=== PATIENT | female | born 1985 | race Caucasian/White ===

== ENCOUNTER 2017-07-16 09:11 | Emergency (ER) | payer OTHER ==
[2017-07-16] MEDS: predniSONE 20 MG TAB PO (12:04)
== END 2017-07-16 12:09 | disposition home or self-care (01) ==
LOC: FTE 09:11
DX: R51 Headache (principal); R42 Dizziness and giddiness
CPT/HCPCS: 70450; 82962; 93005; 99284-25

== ENCOUNTER 2017-12-20 15:10 | Inpatient (IN) | payer OTHER ==
[2017-12-20] MEDS ORDERED: MAGNESIUM HYDROXIDE 30ML CUP PO (16:00)
[2017-12-20] MEDS ORDERED: morphine 2 MG INJ IV (16:00)
[2017-12-20] MEDS ORDERED: BISACODYL (EC) 5 MG TAB PO (16:00)
[2017-12-20] MEDS ORDERED: DOCUSATE SODIUM 100 MG CAP PO (16:00)
[2017-12-20] MEDS ORDERED: NACL 0.9% 3 ML SYG IV (16:00)
[2017-12-20] MEDS ORDERED: ONDANSETRON 4 MG INJ IV (16:00)
[2017-12-20 16:12] LABS: ADD MAN DIFF? NO
[2017-12-20 16:13] LABS: WHITE BLOOD COUNT 7.2 10^3/ul (4.8-10.8)
[2017-12-20 16:13] LABS: ABNORMAL IP MESSAGE 1; BASOPHILS % 0.1 % (0.0-2.0); HEMATOCRIT 39.6 % (37.0-47.0); HEMOGLOBIN 13.2 g/dl (12.0-16.0); LYMPHOCYTES # 0.4 10^3/ul (0.8-2.9); MEAN CORPUSCULAR HEMOGLOBIN 30.4 pg (29.0-33.0); MEAN CORPUSCULAR HGB CONC 33.3 g/dl (32.0-37.0); MEAN CORPUSCULAR VOLUME 91.2 fl (82.0-101.0); MEAN PLATELET VOLUME 9.4 fl (7.4-10.4); MONOCYTES % 0.6 % (0.0-11.0); NEUTROPHIL # 6.7 10^3/ul (1.6-7.5); NEUTROPHILS % 92.9 % (39.0-77.0); PLATELET COUNT 300 10^3/UL (140-415); RED BLOOD COUNT 4.34 10^6/ul (4.20-5.40); RED CELL DISTRIBUTION WIDTH 13.4 % (11.5-14.5)
[2017-12-20 16:26] LABS: POSITIVE DIFF @See below
[2017-12-20 16:37] LABS: ALANINE AMINOTRANSFERASE 102 IU/L (13-69); ALBUMIN 4.7 g/dl (3.3-4.9); ALKALINE PHOSPHATASE 95 IU/L (42-121); ANION GAP 15 (8-16); ASPARTATE AMINO TRANSFERASE 64 IU/L (15-46); BILIRUBIN,INDIRECT 0.7 mg/dl (0-1.1); BILIRUBIN,TOTAL 0.7 mg/dl (0.2-1.3); BLOOD UREA NITROGEN 13 mg/dl (7-20); CALCIUM 9.6 mg/dl (8.4-10.2); CARBON DIOXIDE 27 mmol/L (21-31); CHLORIDE 104 mmol/L (97-110); CREATININE 0.61 mg/dl (0.44-1.00); GLUCOSE 179 mg/dl (70-220); POTASSIUM 4.5 mmol/L (3.5-5.1); SODIUM 141 mmol/L (135-144); TOTAL PROTEIN 8.3 g/dl (6.1-8.1)
[2017-12-20] MEDS: ACETAMINOPHEN 325 MG TAB PO (17:25)
[2017-12-20] MEDS: TECFIDERA 240 MG PO (21:07)
[2017-12-20] MEDS: DULOXETINE 20 MG CAP DR PO (21:07)
[2017-12-20] MEDS: HEPARIN 5,000 UNIT/0.5 ML VIAL SC (21:12)
[2017-12-20] MEDS: ZOLPIDEM 5 MG TAB PO (22:49)
[2017-12-21] MEDS: HEPARIN 5,000 UNIT/0.5 ML VIAL SC ×3 (05:45→21:30)
[2017-12-21 06:24] LABS: ADD MAN DIFF? NO
[2017-12-21 06:31] LABS: WHITE BLOOD COUNT 13.1 10^3/ul (4.8-10.8)
[2017-12-21 06:31] LABS: BASOPHILS % 0.1 % (0.0-2.0); HEMATOCRIT 37.1 % (37.0-47.0); HEMOGLOBIN 12.4 g/dl (12.0-16.0); LYMPHOCYTES # 0.7 10^3/ul (0.8-2.9); LYMPHOCYTES % 5.6 % (15.0-51.0); MEAN CORPUSCULAR HEMOGLOBIN 30.2 pg (29.0-33.0); MEAN CORPUSCULAR HGB CONC 33.4 g/dl (32.0-37.0); MEAN CORPUSCULAR VOLUME 90.3 fl (82.0-101.0); MEAN PLATELET VOLUME 9.6 fl (7.4-10.4); MONOCYTE # 0.4 10^3/ul (0.3-0.9); MONOCYTES % 3.3 % (0.0-11.0); NEUTROPHIL # 11.8 10^3/ul (1.6-7.5); NEUTROPHILS % 90.5 % (39.0-77.0); PLATELET COUNT 309 10^3/UL (140-415); RED BLOOD COUNT 4.11 10^6/ul (4.20-5.40); RED CELL DISTRIBUTION WIDTH 13.4 % (11.5-14.5)
[2017-12-21 07:16] LABS: ALANINE AMINOTRANSFERASE 90 IU/L (13-69); ALBUMIN 4.1 g/dl (3.3-4.9); ALBUMIN/GLOBULIN RATIO 1.24; ALKALINE PHOSPHATASE 70 IU/L (42-121); ANION GAP 9 (8-16); ASPARTATE AMINO TRANSFERASE 45 IU/L (15-46); BILIRUBIN,INDIRECT 0.5 mg/dl (0-1.1); BILIRUBIN,TOTAL 0.5 mg/dl (0.2-1.3); BLOOD UREA NITROGEN 14 mg/dl (7-20); CALCIUM 9.4 mg/dl (8.4-10.2); CARBON DIOXIDE 27 mmol/L (21-31); CHLORIDE 107 mmol/L (97-110); CREATININE 0.47 mg/dl (0.44-1.00); GLUCOSE 163 mg/dl (70-220); POTASSIUM 4.1 mmol/L (3.5-5.1); SODIUM 139 mmol/L (135-144); TOTAL PROTEIN 7.4 g/dl (6.1-8.1)
[2017-12-21] MEDS: DULOXETINE 20 MG CAP DR PO ×2 (09:08→21:23)
[2017-12-21] MEDS: ACETAMINOPHEN 325 MG TAB PO (09:09)
[2017-12-21] MEDS: TECFIDERA 240 MG PO ×2 (09:10→21:24)
[2017-12-21] MEDS: METHYLPRED. NA SUCC 1,000 MG in DEXTROSE 5% 50 ML IVPB (09:37)
[2017-12-21] MEDS: LORAZEPAM 0.5 MG TAB PO (14:44)
[2017-12-21] MEDS ORDERED: morphine LIQ (10 MG/5 ML) CUP PO (15:00)
[2017-12-21] MEDS: FAMOTIDINE 20 MG TAB PO (21:23)
[2017-12-21] MEDS ORDERED: ZOLPIDEM 5 MG TAB PO (22:00)
[2017-12-21] MEDS: ZOLPIDEM 5 MG TAB PO (22:18)
[2017-12-22] MEDS: HEPARIN 5,000 UNIT/0.5 ML VIAL SC ×3 (05:37→21:14)
[2017-12-22 06:18] LABS: ADD MAN DIFF? NO
[2017-12-22 06:28] LABS: BASOPHILS % 0.1 % (0.0-2.0); HEMATOCRIT 35.7 % (37.0-47.0); HEMOGLOBIN 12.1 g/dl (12.0-16.0); LYMPHOCYTES # 1.1 10^3/ul (0.8-2.9); LYMPHOCYTES % 6.1 % (15.0-51.0); MEAN CORPUSCULAR HEMOGLOBIN 30.5 pg (29.0-33.0); MEAN CORPUSCULAR HGB CONC 33.9 g/dl (32.0-37.0); MEAN CORPUSCULAR VOLUME 89.9 fl (82.0-101.0); MEAN PLATELET VOLUME 9.6 fl (7.4-10.4); MONOCYTE # 1.1 10^3/ul (0.3-0.9); MONOCYTES % 6.3 % (0.0-11.0); NEUTROPHIL # 15.6 10^3/ul (1.6-7.5); NEUTROPHILS % 86.8 % (39.0-77.0); PLATELET COUNT 299 10^3/UL (140-415); RED BLOOD COUNT 3.97 10^6/ul (4.20-5.40); RED CELL DISTRIBUTION WIDTH 14.1 % (11.5-14.5)
[2017-12-22 06:28] LABS: WHITE BLOOD COUNT 17.9 10^3/ul (4.8-10.8)
[2017-12-22 06:46] LABS: PHOSPHORUS 3.7 mg/dl (2.5-4.9)
[2017-12-22 06:46] LABS: MAGNESIUM 2.2 mg/dl (1.7-2.5)
[2017-12-22 06:58] LABS: ANION GAP 13 (8-16); BLOOD UREA NITROGEN 17 mg/dl (7-20); CALCIUM 9.2 mg/dl (8.4-10.2); CARBON DIOXIDE 27 mmol/L (21-31); CHLORIDE 105 mmol/L (97-110); CREATININE 0.51 mg/dl (0.44-1.00); GLUCOSE 132 mg/dl (70-220); SODIUM 141 mmol/L (135-144)
[2017-12-22] MEDS: DULOXETINE 20 MG CAP DR PO ×2 (08:46→21:11)
[2017-12-22] MEDS: METHYLPRED. NA SUCC 1,000 MG in DEXTROSE 5% 50 ML IVPB (08:46)
[2017-12-22] MEDS: FAMOTIDINE 20 MG TAB PO ×2 (08:46→21:11)
[2017-12-22] MEDS: TECFIDERA 240 MG PO ×2 (09:21→21:11)
[2017-12-22] MEDS: ACETAMINOPHEN 325 MG TAB PO (17:04)
[2017-12-22] MEDS: LORAZEPAM 0.5 MG TAB PO (21:11)
[2017-12-23] MEDS: HYDROCODONE/APAP (5/325) TAB PO (04:08)
[2017-12-23] MEDS: HEPARIN 5,000 UNIT/0.5 ML VIAL SC ×2 (05:45→14:00)
[2017-12-23 06:04] LABS: ADD MAN DIFF? NO
[2017-12-23 06:08] LABS: WHITE BLOOD COUNT 13.3 10^3/ul (4.8-10.8)
[2017-12-23 06:08] LABS: BASOPHILS % 0.1 % (0.0-2.0); HEMATOCRIT 35.9 % (37.0-47.0); HEMOGLOBIN 11.9 g/dl (12.0-16.0); LYMPHOCYTES # 1.2 10^3/ul (0.8-2.9); LYMPHOCYTES % 9.2 % (15.0-51.0); MEAN CORPUSCULAR HEMOGLOBIN 30.4 pg (29.0-33.0); MEAN CORPUSCULAR HGB CONC 33.1 g/dl (32.0-37.0); MEAN CORPUSCULAR VOLUME 91.6 fl (82.0-101.0); MEAN PLATELET VOLUME 9.8 fl (7.4-10.4); MONOCYTE # 0.9 10^3/ul (0.3-0.9); MONOCYTES % 6.4 % (0.0-11.0); NEUTROPHIL # 11.1 10^3/ul (1.6-7.5); NEUTROPHILS % 83.2 % (39.0-77.0); PLATELET COUNT 294 10^3/UL (140-415); RED BLOOD COUNT 3.92 10^6/ul (4.20-5.40); RED CELL DISTRIBUTION WIDTH 14.2 % (11.5-14.5)
[2017-12-23 06:25] LABS: MAGNESIUM 2.3 mg/dl (1.7-2.5)
[2017-12-23 06:25] LABS: PHOSPHORUS 3.9 mg/dl (2.5-4.9)
[2017-12-23 06:26] LABS: ANION GAP 11 (8-16); BLOOD UREA NITROGEN 16 mg/dl (7-20); CARBON DIOXIDE 30 mmol/L (21-31); CHLORIDE 105 mmol/L (97-110); CREATININE 0.55 mg/dl (0.44-1.00); GLUCOSE 166 mg/dl (70-220); SODIUM 142 mmol/L (135-144)
[2017-12-23] MEDS: FAMOTIDINE 20 MG TAB PO (08:34)
[2017-12-23] MEDS: TECFIDERA 240 MG PO (08:34)
[2017-12-23] MEDS: DULOXETINE 20 MG CAP DR PO (08:34)
[2017-12-23] MEDS: SOD CHLORIDE 0.9% 1,000 ML IV (09:40)
[2017-12-23 13:06] LABS: ADD UMIC YES; UR ASCORBIC ACID NEGATIVE (NEGATIVE); UR BACTERIA FEW /HPF (NONE SEEN); UR BILIRUBIN (Dip) NEGATIVE (NEGATIVE); UR BLOOD (Dip) 2+ mg/dL (NEGATIVE); UR CLARITY CLEAR (CLEAR); UR COLOR YELLOW (YELLOW); UR GLUCOSE (Dip) NEGATIVE (NEGATIVE); UR KETONES (Dip) NEGATIVE (NEGATIVE); UR LEUKOCYTE ESTERASE (Dip) NEGATIVE Leu/ul (NEGATIVE); UR NITRITE (Dip) NEGATIVE (NEGATIVE); UR RBC 7 /HPF (0-5); UR SPECIFIC GRAVITY (Dip) 1.015 (1.003-1.030); UR SQUAMOUS EPITHELIAL CELL FEW /HPF (FEW); UR TOTAL PROTEIN (Dip) NEGATIVE (NEGATIVE); UR UROBILINOGEN (Dip) NEGATIVE (NEGATIVE); UR WBC 1 /HPF (0-5)
== END 2017-12-23 16:30 | disposition home or self-care (01) | DRG 60 ==
LOC: MS2 15:10
DX: G35 Multiple sclerosis (principal)
CPT/HCPCS: 70553; 72156; 72157; 80048; 80053; 81001; 82607; 83735; 84100; 85025; 87086; 97161

== ENCOUNTER 2018-09-14 10:50 | Inpatient (IN) | payer OTHER ==
[2018-09-14 13:36] LABS: ADD MAN DIFF? NO
[2018-09-14 13:40] LABS: ABNORMAL IP MESSAGE 1; BASOPHILS % 0.5 % (0.0-2.0); EOSINOPHILS # 0.1 10^3/ul (0.0-0.5); EOSINOPHILS % 1.2 % (0.0-7.0); HEMATOCRIT 39.7 % (37.0-47.0); HEMOGLOBIN 13.2 g/dl (12.0-16.0); LYMPHOCYTES # 0.6 10^3/ul (0.8-2.9); LYMPHOCYTES % 14.7 % (15.0-51.0); MEAN CORPUSCULAR HEMOGLOBIN 30.2 pg (29.0-33.0); MEAN CORPUSCULAR HGB CONC 33.2 g/dl (32.0-37.0); MEAN CORPUSCULAR VOLUME 90.8 fl (82.0-101.0); MONOCYTE # 0.5 10^3/ul (0.3-0.9); MONOCYTES % 13.4 % (0.0-11.0); NEUTROPHIL # 2.8 10^3/ul (1.6-7.5); NEUTROPHILS % 69.7 % (39.0-77.0); PLATELET COUNT 282 10^3/UL (140-415); RED BLOOD COUNT 4.37 10^6/ul (4.20-5.40); RED CELL DISTRIBUTION WIDTH 12.4 % (11.5-14.5)
[2018-09-14 13:43] LABS: POSITIVE DIFF @See below
[2018-09-14 14:01] LABS: ALANINE AMINOTRANSFERASE 49 IU/L (13-69); ALBUMIN 4.7 g/dl (3.3-4.9); ALKALINE PHOSPHATASE 122 IU/L (42-121); ANION GAP 15 (5-13); ASPARTATE AMINO TRANSFERASE 33 IU/L (15-46); BILIRUBIN,INDIRECT 0.2 mg/dl (0-1.1); BILIRUBIN,TOTAL 0.2 mg/dl (0.2-1.3); BLOOD UREA NITROGEN 14 mg/dl (7-20); CALCIUM 9.5 mg/dl (8.4-10.2); CARBON DIOXIDE 24 mmol/L (21-31); CHLORIDE 102 mmol/L (97-110); CREATININE 0.52 mg/dl (0.44-1.00); Estimated GFR > 60 mL/min (>60); GLUCOSE 88 mg/dl (70-220); SODIUM 141 mmol/L (135-144); TOTAL PROTEIN 8.3 g/dl (6.1-8.1)
[2018-09-14 14:02] LABS: ADD UMIC YES; UR ASCORBIC ACID NEGATIVE (NEGATIVE); UR BILIRUBIN (Dip) NEGATIVE (NEGATIVE); UR BLOOD (Dip) 1+ mg/dL (NEGATIVE); UR CLARITY CLEAR (CLEAR); UR COLOR YELLOW (YELLOW); UR GLUCOSE (Dip) NEGATIVE (NEGATIVE); UR KETONES (Dip) NEGATIVE (NEGATIVE); UR LEUKOCYTE ESTERASE (Dip) NEGATIVE Leu/ul (NEGATIVE); UR NITRITE (Dip) NEGATIVE (NEGATIVE); UR RBC 21 /HPF (0-5); UR SQUAMOUS EPITHELIAL CELL FEW /HPF (FEW); UR TOTAL PROTEIN (Dip) NEGATIVE (NEGATIVE); UR UROBILINOGEN (Dip) NEGATIVE (NEGATIVE); UR WBC 7 /HPF (0-5)
[2018-09-14] MEDS: METHYLPRED. NA SUCC 1,000 MG in DEXTROSE 5% 50 ML IVPB (14:35)
[2018-09-14] MEDS ORDERED: ONDANSETRON 4 MG INJ IV ×2 (15:00)
[2018-09-14] MEDS ORDERED: ACETAMINOPHEN 325 MG TAB PO (15:00)
[2018-09-14] MEDS ORDERED: NACL 0.9% 3 ML SYG IV (15:00)
[2018-09-14] MEDS ORDERED: SALINE 0.65% 45 ML NAS SPRAY NASAL (16:00)
[2018-09-14] MEDS: ACETAMINOPHEN 325 MG TAB PO (18:14)
[2018-09-14] MEDS: HYDROCODONE/APAP (5/325) TAB PO (18:31)
[2018-09-14] MEDS ORDERED: NON-FORMULARY/PATIENT OWN MED (Dimethyl Fumarate (Tecfidera) 240 MG) PO (21:00)
[2018-09-14] MEDS: LORATADINE/PSEUDOEPHED (SR) TAB PO ×2 (21:00→21:59)
[2018-09-14] MEDS: FLUTICASONE 0.05% 16 GM NAS SPRAY NASAL (21:59)
[2018-09-14] MEDS: traZODone 50 MG TAB PO (23:01)
[2018-09-15 05:04] LABS: ADD MAN DIFF? NO
[2018-09-15 05:07] LABS: WHITE BLOOD COUNT 9.2 10^3/ul (4.8-10.8)
[2018-09-15 05:07] LABS: ABNORMAL IP MESSAGE 1; HEMATOCRIT 38.6 % (37.0-47.0); HEMOGLOBIN 13.3 g/dl (12.0-16.0); LYMPHOCYTES # 0.4 10^3/ul (0.8-2.9); LYMPHOCYTES % 4.8 % (15.0-51.0); MEAN CORPUSCULAR HEMOGLOBIN 30.4 pg (29.0-33.0); MEAN CORPUSCULAR HGB CONC 34.5 g/dl (32.0-37.0); MEAN CORPUSCULAR VOLUME 88.1 fl (82.0-101.0); MEAN PLATELET VOLUME 9.2 fl (7.4-10.4); MONOCYTE # 0.1 10^3/ul (0.3-0.9); MONOCYTES % 0.8 % (0.0-11.0); NEUTROPHIL # 8.6 10^3/ul (1.6-7.5); NEUTROPHILS % 94.1 % (39.0-77.0); PLATELET COUNT 289 10^3/UL (140-415); RED BLOOD COUNT 4.38 10^6/ul (4.20-5.40); RED CELL DISTRIBUTION WIDTH 12.6 % (11.5-14.5)
[2018-09-15 05:32] LABS: POSITIVE DIFF @See below
[2018-09-15 05:37] LABS: ANION GAP 12 (5-13); BLOOD UREA NITROGEN 11 mg/dl (7-20); CALCIUM 10.1 mg/dl (8.4-10.2); CARBON DIOXIDE 26 mmol/L (21-31); CHLORIDE 104 mmol/L (97-110); CREATININE 0.49 mg/dl (0.44-1.00); Estimated GFR > 60 mL/min (>60); GLUCOSE 164 mg/dl (70-220); POTASSIUM 4.9 mmol/L (3.5-5.1); SODIUM 142 mmol/L (135-144)
[2018-09-15] MEDS: HYDROCODONE/APAP (5/325) TAB PO (07:45)
[2018-09-15] MEDS: FLUTICASONE 0.05% 16 GM NAS SPRAY NASAL ×2 (08:48→21:46)
[2018-09-15] MEDS: LORATADINE/PSEUDOEPHED (SR) TAB PO ×2 (08:49→22:52)
[2018-09-15] MEDS: DULOXETINE 30 MG CAP DR PO (08:49)
[2018-09-15] MEDS: ENOXAPARIN 40 MG/0.4 ML SYG SC (08:50)
[2018-09-15] MEDS: METHYLPRED. NA SUCC 1,000 MG in DEXTROSE 5% 50 ML IVPB (09:10)
[2018-09-15 12:17] LABS: C-REACTIVE PROTEIN < 0.5 mg/dl (0.0-0.9)
[2018-09-15 12:48] LABS: ERYTHROCYTE SEDIMENTATION RATE 15 mm/Hr (0-20)
[2018-09-15 16:07] LABS: RHEUMATOID FACTOR NEGATIVE (NEGATIVE)
[2018-09-15] MEDS ORDERED: PSYLLIUM 28% PACKET PO (17:00)
[2018-09-15] MEDS: PSYLLIUM 28% PACKET PO (18:08)
[2018-09-15] MEDS: traZODone 50 MG TAB PO (22:52)
[2018-09-16] MEDS: ENOXAPARIN 40 MG/0.4 ML SYG SC (09:00)
[2018-09-16] MEDS: LORATADINE/PSEUDOEPHED (SR) TAB PO ×2 (09:06→21:09)
[2018-09-16] MEDS: FLUTICASONE 0.05% 16 GM NAS SPRAY NASAL ×2 (09:06→21:09)
[2018-09-16] MEDS: DULOXETINE 30 MG CAP DR PO (09:06)
[2018-09-16] MEDS: CYANOCOBALAMIN 1000 MCG INJ IM (10:16)
[2018-09-16] MEDS: METHYLPRED. NA SUCC 1,000 MG in DEXTROSE 5% 50 ML IVPB (11:57)
[2018-09-16 13:44] LABS: IRON 100 ug/dl (35-150)
[2018-09-16 13:54] LABS: % IRON SATURATION 29 % SAT (22-52); TOTAL IRON BINDING CAPACITY 344 ug/dl (241-421)
[2018-09-16 14:07] LABS: ANA SCREEN NEGATIVE (NEGATIVE)
[2018-09-16 21:26] LABS: ADD UMIC YES; UR ASCORBIC ACID NEGATIVE (NEGATIVE); UR BACTERIA FEW /HPF (NONE SEEN); UR BILIRUBIN (Dip) NEGATIVE (NEGATIVE); UR BLOOD (Dip) 1+ mg/dL (NEGATIVE); UR CLARITY CLOUDY (CLEAR); UR COLOR YELLOW (YELLOW); UR GLUCOSE (Dip) NEGATIVE (NEGATIVE); UR KETONES (Dip) NEGATIVE (NEGATIVE); UR LEUKOCYTE ESTERASE (Dip) 2+ Leu/ul (NEGATIVE); UR MUCUS MANY /HPF (NONE SEEN); UR NITRITE (Dip) NEGATIVE (NEGATIVE); UR RBC 9 /HPF (0-5); UR SPECIFIC GRAVITY (Dip) 1.031 (1.003-1.030); UR SQUAMOUS EPITHELIAL CELL MODERATE /HPF (FEW); UR TOTAL PROTEIN (Dip) NEGATIVE (NEGATIVE); UR UROBILINOGEN (Dip) NEGATIVE (NEGATIVE); UR WBC 24 /HPF (0-5)
[2018-09-16] MEDS: HYDROCODONE/APAP (5/325) TAB PO (23:22)
[2018-09-17] MEDS: ENOXAPARIN 40 MG/0.4 ML SYG SC (09:00)
[2018-09-17] MEDS: FLUTICASONE 0.05% 16 GM NAS SPRAY NASAL (09:10)
[2018-09-17] MEDS: DULOXETINE 30 MG CAP DR PO (09:11)
[2018-09-17] MEDS: MAGNESIUM HYDROXIDE 30ML CUP PO (09:11)
[2018-09-17] MEDS: DOCUSATE SODIUM 100 MG CAP PO (09:11)
[2018-09-17] MEDS: LORATADINE/PSEUDOEPHED (SR) TAB PO (09:11)
[2018-09-17] MEDS: predniSONE 50 MG TAB PO (09:11)
== END 2018-09-17 14:20 | disposition home or self-care (01) | DRG 60 ==
LOC: E/R 10:50 → MS1 14:43
DX: G35 Multiple sclerosis (principal); J01.90 Acute sinusitis, unspecified; F41.9 Anxiety disorder, unspecified; F32.9 Major depressive disorder, single episode, unspecified
CPT/HCPCS: 70450; 73130; 73600-50; 80048; 80053; 81001; 82306; 82607; 82652; 83540; 83735; 84443; 85025; 85651; 86038; 86140; 86430; 96374; 97110; 97116; 97161; 97166; 97530; 99285-25